=== PATIENT | male | born 1990 | race Caucasian/White ===

== ENCOUNTER 2018-11-23 19:54 | Emergency (ER) | payer BC, SELFPAY ==
[2018-11-23] MEDS ORDERED: Ketorolac Tromethamine 60 MG/2 ML VIAL ONE (22:20)
--- NOTE | 2018-11-23 22:24 | CT ---
CT THORACIC SPINE WITH CORONAL AND SAGITTAL REFORMATIONS: History: Back pain. FINDINGS/IMPRESSION: The vertebral body heights are maintained. No fracture, subluxation, or bony destruction is identifie d. The visualized lung montano are clear. There is a tiny punctate nonobstructing left renal calculus is seen. POS: ALYSSA
[2018-11-23 22:31] LABS: Bilirubin Negative (Negative); Blood, Urine Negative (Negative); Clarity Clear (Clear); Glucose, Urine (Dipstick) Normal (Negative); Leukocyte Negative Leu/uL (Negative); Nitrite Negative (Negative); Protein, Urine (Dipstick) Negative (Neg-Trace); Urobilinogen Normal mg/dL (Less than 2)
== END 2018-11-23 22:48 | disposition home or self-care (01) ==
LOC: ERS 19:54
DX: M54.6 Pain in thoracic spine (principal); F17.210 Nicotine dependence, cigarettes, uncomplicated
CPT/HCPCS: 72128; 81003; 96372; J1885